=== PATIENT | male | born 1980 | race Hispanic/Latino ===

== ENCOUNTER 2023-11-19 13:37 | Emergency (ER) | payer OTHER ==
[~2023-11-19] VITALS: Ht 175.3 cm; Wt 83.9 kg
[2023-11-19 19:27] VITALS: BP 142/80; PULSE 82; RESP 18; O2SAT 99
[2023-11-19] MEDS: KETOROLAC 30MG VIAL (30MG/ML) ONE (19:27)
[2023-11-19] MEDS: KETOROLAC 30MG VIAL (30MG/ML) IM SCH (19:30)
[2023-11-19] MEDS ORDERED: GLYB5TAB8 PO (19:44)
[2023-11-19] MEDS ORDERED: IBUP-2070 PO (19:44)
== END 2023-11-19 20:23 | disposition home or self-care (01) ==
LOC: EDH 13:37
DX: S39.012A Strain of muscle, fascia and tendon of lower back, initial encounter (principal); X50.0XXA Overexertion from strenuous movement or load, initial encounter; Y93.89 Activity, other specified; Y92.89 Other specified places as the place of occurrence of the external cause; Y99.8 Other external cause status
CPT/HCPCS: 99283; 96372; J1885